=== PATIENT | female | born 1990 | race Caucasian/White ===

== ENCOUNTER 2016-09-10 00:30 | Emergency (ER) | payer OTHER ==
[2016-09-10] MEDS ORDERED: DEXAMETHASONE 10 MG/ML VIAL PO STA (02:11)
[2016-09-10] MEDS ORDERED: IPRATROPIUM/ALBUTEROL 3 ML NEB INH STA (02:11)
[2016-09-10] MEDS ORDERED: CHERRY SYRUP 10 ML UDC PO ONE (02:24)
[2016-09-10] MEDS ORDERED: DEXAMETHASONE 10 MG/ML VIAL ONE (02:24)
[2016-09-10] MEDS ORDERED: IPRATROPIUM/ALBUTEROL 3 ML NEB INH ONE (03:31)
[2016-09-10] MEDS ORDERED: ALBUTEROL 8 GM INHALER INH ONE (04:55)
== END 2016-09-10 05:08 | disposition home or self-care (01) ==
DX: J40 Bronchitis, not specified as acute or chronic (principal)
CPT/HCPCS: 71020; 94640; 99283; 99284; A9270; J7620